=== PATIENT | female | born 1970 | race Caucasian/White ===

== ENCOUNTER → 2016-08-07 | Outpatient (CLI) | payer BC ==
[~2016-08-07] MED LIST: ADVIN10/60 INH; ALBU1NEB10 INH; ALBUAER2 INH; ASPI81TA28 PO; CHOL100010 PO; CIPR250T3 PO; CZR50 PO; HYDC25 PO; NXM/40 PO; SIMV20TA5 OR; SNG10 PO
--- NOTE | 2016-08-07 16:16 | DIAGNOSTIC IMAGING REPORT ---
CHEST 2 VIEWS ROUTINE CLINICAL HISTORY: I10 [id number] hypertension COMPARISON STUDY: No previous studies for comparison. FINDINGS: The bones soft tissues and hemidiaphragms are normal. The cardiomediastinal silhouette is normal. The lungs are clear. The pulmonary vasculature is normal. IMPRESSION: Negative chest. Electronically signed by: Justice Trejo M.D. 08/07/2016 4:14 PM Dictated Date/Time: 08/07/2016 4:13 PM
[2016-08-07 16:27] LABS: BASO % 0.3 %; BASO ABS # 0.03 K/uL (0-0.2); COMPLETE YES; EOS % 2.5 %; HEMATOCRIT 42.5 % (37-47); IG% 0.7 %; LYMPH % 18.5 %; LYMPH ABS # 1.68 K/uL (1.2-3.4); MEAN CELL VOLUME 86.9 fL (80-100); MEAN CORPUSCULAR HEMOGLOBIN 30.9 pg (25-34); MEAN CORPUSCULAR HGB CONC 35.5 g/dl (32-36); MEAN PLATELET VOLUME 9.7 fL (7.4-10.4); MONO % 12.4 %; NEUT % 65.6 %; PLATELET COUNT 361 K/uL (130-400); RED BLOOD COUNT 4.89 M/uL (4.2-5.4)
[2016-08-07 16:50] LABS: BLOOD UREA NITROGEN 11 mg/dl (7-18); BUN/CREATININE RATIO 12.9 (10-20); CALCIUM 9.2 mg/dl (8.5-10.1); CARBON DIOXIDE 23 mmol/L (21-32); CHLORIDE 101 mmol/L (98-107); CREATININE 0.86 mg/dl (0.60-1.20); GLUCOSE 87 mg/dl (70-99); POTASSIUM 3.6 mmol/L (3.5-5.1); SODIUM 137 mmol/L (136-145)
[2016-08-07 18:15] LABS: INFLUENZA B PCR Neg for Influ B (NEG)
[2016-08-07 21:59] LABS: INFLUENZA A PCR POS for Influ A (NEG)
== END | disposition home or self-care (01) ==
LOC: C.RAD 15:43
PROVIDERS: ATTEND Internal Medicine Pulmonary Disease
DX: I10 Essential (primary) hypertension (principal)